=== PATIENT | female | born 1975 | race Two or more races ===

== ENCOUNTER 2022-07-03 10:51 | Emergency (ER) | payer OTHER ==
[~2022-07-03] VITALS: Ht 165.1 cm; Wt 100.0 kg
[2022-07-03 11:20] VITALS: BP 136/91
[2022-07-03] MEDS ORDERED: ACETAMINOPHEN 500 MG TAB PO ONE (11:30)
== END 2022-07-03 15:19 | disposition left against medical advice (07) ==
LOC: ER 10:51
DX: S16.1XXA Strain of muscle, fascia and tendon at neck level, initial encounter (principal); S00.83XA Contusion of other part of head, initial encounter; G91.9 Hydrocephalus, unspecified; G93.0 Cerebral cysts; Z20.822 Contact with and (suspected) exposure to COVID-19; W01.198A Fall on same level from slipping, tripping and stumbling with subsequent striking against other object, initial encounter; Y93.89 Activity, other specified; Y92.89 Other specified places as the place of occurrence of the external cause; Y99.8 Other external cause status
CPT/HCPCS: 36415; 70450; 72040; 87426

== ENCOUNTER → 2024-09-14 | Day surgery (SDC) | payer OTHER ==
[2024-09-13 10:32] LABS: Basophils # (auto) 0.1 10 ^3/uL (0-0.2); Eosinophils # (auto) 0.3 10 ^3/uL (0-0.8); Hemoglobin 13.5 g/dL (12.2-16.2); Lymphocytes # (auto) 2.3 10 ^3/uL (0.4-5.4); Neutrophils # (auto) 3.4 10 ^3/uL (1.6-8.6); Red Cell Distribution Width 14.3 % (11.8-14.3)
[2024-09-13 10:34] LABS: Basophils % (auto) 0.8 % (0.0-2.0); Eosinophils % (auto) 4.6 % (0.0-7.0); Hematocrit 42.2 % (36.0-46.0); Lymphocytes % (auto) 35.5 % (10.0-50.0); Mean Corpuscular Hemoglobin 26.8 pg (28.0-32.0); Mean Corpuscular Volume 83.7 fL (80.0-100.0); Monocytes # (auto) 0.5 10 ^3/uL (0-1.3); Neutrophils % (auto) 52.1 % (37.0-80.0); Platelet Count (auto) 396 10^3/uL (140-450); Red Blood Cells 5.04 10^6/uL (4.0-5.20); White Blood Cell 6.6 10^3/uL (4.4-10.8)
[2024-09-13 10:44] LABS: INR 0.98 (0.9-1.15); Partial Thromboplastin Time 28.3 SEC (24.5-34.5); Prothrombin Time 10.4 sec (9.3-11.8)
[2024-09-13 10:45] LABS: Urine Bacteria FEW /hpf (None Seen); Urine Blood Negative /uL (Negative); Urine Clarity Clear (Clear); Urine Color Colorless (Yellow); Urine Protein, UAD Negative (Negative); Urine Specific Gravity 1.004 (1.001-1.035); Urine Squamous Epithelial Cell FEW /hpf (<5); Urine Urobilinogen Normal (Negative); Urine WBC 4 /HPF (0-5)
[2024-09-13 12:01] LABS: Alkaline Phosphatase 84 U/L (46-116); Anion Gap 9 (5-15); Aspartate Aminotransferase 34 U/L (13-40); Calcium 10.3 mg/dL (8.7-10.4); Carbon Dioxide 27 mmol/L (20-31); Chloride 106 mmol/L (98-107); Potassium 4.3 mmol/L (3.5-5.1); Sodium 142 mmol/L (136-145); Total Protein 7.4 g/dL (5.7-8.2)
[2024-09-13 12:10] LABS: Alanine Aminotransferase 61 U/L (7-40); Bilirubin, Total 0.3 mg/dL (0.2-1.0); Blood Urea Nitrogen 8 mg/dL (9-23); Glucose 111 mg/dL (74-106)
[~2024-09-14] VITALS: Ht 165.1 cm; Wt 108.9 kg
[~2024-09-14] MED LIST: DexAMETHasone SOD PHOS 10MG/1ML VIAL INJ ONE; GLYCOPYRROLATE 0.2 MG/ML 1ML VIAL ONE; HYDROmorphone HCL 2 MG/ML VL/or syr ONE; KETOROLAC TROMETH 30 MG/ML 1ML VIAL ONE; LIDOCAINE 2% (LOCAL ANESTH.) PF 5ml SDV ONE; MIDAZOLAM HCL 2MG/2ML 2ml VIAL (1mg/ml) ONE; ONDANSETRON HCL 4 MG/2 ML VIAL ONE; PROPOFOL 10 MG/ML 20 ML IV ONE; VENL-194 PO; fentaNYL CITRATE 100 MCG/2 ML VL ONE
== END | disposition home or self-care (01) ==
LOC: SUR 09:18
PROVIDERS: ATTEND Urology
DX: N39.3 Stress incontinence (female) (male) (principal); Z53.8 Procedure and treatment not carried out for other reasons
CPT/HCPCS: 36415; 80053; 81001; 84702; 85025; 85610; 85730; 87086; J1100; J1171; J1885; J2003; J2250; J2405; J2704; J3010

== ENCOUNTER 2024-11-14 13:04 | Inpatient (IN) | payer OTHER ==
[~2024-11-14] VITALS: Ht 165.1 cm; Wt 111.7 kg
[~2024-11-14 13:04] MED LIST changes: -ACETAMINOPHEN IV 1000 MG/100ML (10MG/ML) IV ONE; -BACITRACIN TOP OINT 1 UD PKG TOP ONE; -CELECOXIB 100 MG CAP PO ONE; -CONJ ESTROGENS 0.625MG/GM VAG CRM 30GM PV ONE; -DOCU-94 PO; -DexAMETHasone SOD PHOS 10MG/1ML VIAL INJ ONE; -FLUMAZENIL 0.1 MG/ML INJ 10ML MDV IV PRN; -GABAPENTIN 300 MG CAP PO ONE; -GLYCOPYRROLATE 0.2 MG/ML 1ML VIAL ONE; -HYDROmorphone HCL 2 MG/ML VL/or syr IV PRN; -KETAMINE 50mg/ML 10ml Vial 10 ML ONE; -KETAMINE 50mg/ML 1ml syringe ONE; -KETOROLAC TROMETH 30 MG/ML 1ML VIAL ONE; -LIDOCAINE 1% INJ PF 5ML AMP ONE; -LIDOCAINE 2% (LOCAL ANESTH.) PF 5ml SDV ONE; -LIDOCAINE HCL 2% TOP JELLY 5ML TOP ONE; -LIDOCAINE W/ EPINEPHRINE 1% 20ML VIAL ONE; -Lidocaine/Epinephrine 1%-1:100,000 30ML VL ONE; -MIDAZOLAM HCL 2MG/2ML 2ml VIAL (1mg/ml) ONE; -NALOXONE HCL 0.4 MG/ML VIAL IV PRN; -ONDANSETRON HCL 4 MG/2 ML VIAL IV PRN; -ONDANSETRON HCL 4 MG/2 ML VIAL ONE; -PROPOFOL 10 MG/ML 20 ML IV ONE; -ROCURONIUM 10MG/ML 10ML VIAL IV ONE; -SODIUM CHLORIDE LOCK 10 ML ONE; -ceFAZolin 1GM VL ONE; -ceFAZolin 1GM/50ML 50 ML IV ONE; -ePHEDrine SULFATE 50 MG/ML AMP IV PRN; -fentaNYL CITRATE 100 MCG/2 ML VL IV PRN; -fentaNYL CITRATE 100 MCG/2 ML VL ONE; -fentaNYL CITRATE 5 ML ONE; -hydrALAZINE HCL 20 MG/ML VL IV PRN; -oxyCODONE HCL 5MG TAB PO PRN
--- NOTE | 2024-11-14 13:20 | ED.PDOC ---
General HPI Comments 49-year-old female with a history of anxiety brought in by family for evaluation of post surgical bleeding. Patient states she underwent bladder lift by Dr. Hernandez this morning and was discharged this afternoon. Patient states that after returning home she felt the urge to urinate, checked the collection bag for her Guzman catheter and noted that it was full. As she attempted to empty it, she felt a gush of fluid and noted a large amount of bright red blood on her pad. She states that she has soaked another pad in the past 12 minutes. She denies any worsening pain, just discomfort at the perineal area. He denies fever, abdominal pain, shortness of breath or other symptoms. Time Seen by MD: 13:10 Reviewed notes: Nurses Notes, Medications, Allergies Allergies: Coded Allergies: NO KNOWN ALLERGIES (Unverified , 09/13/24) Home Meds Reported Medications Terbinafine Hcl (Terbinafine Hcl) 250 Mg Tab, 250 MG PO DAILY, TAB 11/10/24 Arnica [place] (Arnica Lg) 1 Liq Liq, 1 LIQ XX DAILY, LIQ 11/10/24 Venlafaxine HCl (Venlafaxine Hydrochloride) 37.5 Mg Tab, 37.5 MG PO BID, TAB 09/13/24 Information Source: Patient Mode of Arrival: Wheelchair Severity: Moderate Timing: Hours Duration: Since onset Prehospital treatment: None Onset: Spontaneous Symptoms: None History of: None Location: None Modifying factors: None associated signs and symptoms: None Past Medical History PAST MEDICAL HISTORY: Anxiety Surgical History: Cholecystectomy Surgical History (Other): COLPOSUSPENSION, RIGHT BREAST TUMOR REMOVAL ADAPTED PHYSICAL EDUCATION SPECIALIST History: No Pertinent ADAPTED PHYSICAL EDUCATION SPECIALIST History Family History Family History: Reviewed,noncontributory to illness Social History Smoker: Non-Smoker Alcohol: Denies ETOH Use Drugs: Denies Drug Use Lives In: Home Constitutional: denies: chills, diaphoresis, fatigue, fever, malaise, sweats, weakness, others EENTM: denies: blurred vision, double vision, ear bleeding, ear discharge, ear drainage, ear pain, ear ringing, eye pain, eye redness, hearing loss, mouth pain, mouth swelling, nasal discharge, nose bleeding, nose congestion, nose pain, photophobia, tearing, throat pain, throat swelling, voice changes, others Respiratory: denies: cough, hemoptysis, orthopnea, SOB at rest, shortness of breath, SOB with excertion, stridor, wheezing, others Cardiovascular: denies: chest pain, dizzy spells, diaphoresis, Dyspnea on exertion, edema, irregular heart beat, left arm pain, lightheadedness, palpitations, PND, syncope, others Gastrointestinal: denies: abdomen distended, abdominal pain, blood streaked bowels, constipated, diarrhea, dysphagia, difficulty swallowing, hematemesis, melena, nausea, poor appetite, poor fluid intake, rectal bleeding, rectal pain, vomiting, others Genitourinary: reports: abnormal vagina bleeding; denies: burning, dyspareunia, dysuria, flank pain, frequency, hematuria, incontinence, pain, , vagina discharge, urgency, others Neurological: denies: dizziness, fainting, headache, left sided numbness, left sided weakness, numbness, paresthesia, pre-existing deficit, right sided numbness, right sided weakness, seizure, speech problems, tingling, tremors, weakness, others Musculoskeletal: denies: back pain, gout, joint pain, joint swelling, muscle pain, muscle stiffness, neck pain, others Integumetry: denies: bruises, change in color, change in hair/nails, dryness, laceration, lesions, lumps, rash, wounds, others Allergic/Immunocompromised: denies: Difficulty Healing, Frequent Infections, Hives, Itching, others Hematologic/Lymphatic: denies: anemia, blood clots, easy bleeding, easy b ruising, swollen glands, others Endocrine: denies: excessive hunger, excessive sweating, excessive thirst, excessive urination, flushing, intolerance to cold, intolerance to heat, unexplained weight gain, unexplained weight loss, others Psychiatric: denies: anxiety, bipolar disorder, depression, hopeless, panic disorder, schizophrenia, sleepless, suicidal, others All Other Systems: Reviewed and Negative Physical Exam General Appearance: Mild Distress, Obese HEENT: Other (Pupils and face symmetric. Moist mucous membranes.) Neck: Full Range of Motion, Normal Inspection Respiratory: Lungs Clear, No Accessory Muscle Use, No Respiratory Distress, Normal Breath Sounds Cardiovascular: No Edema, No JVD, Regular Rate/Rhythm Breast Exam: Deferred Gastrointestinal: Non Tender, Soft Genitalia: Other (Guzman catheter in place with nonbloody urine in the catheter and collection bag. Intravaginal blood soaked packing in place with moderate bright red blood on pad. Minimal bright red bleeding around packing.) Pelvic: Deferred Rectal: Deferred Extremities: Normal inspection, Normal range of motion, Non-tender, No pedal edema Neurologic: Alert (Oriented x4), Normal Affect, Normal Mood, Other (Ambulatory with assistance. Mildly tremulous.) Cerebellar Function: NOT DONE Reflexes: NOT DONE Skin: Dry, Pallor, Warm Lymphatic: NOT DONE Was a procedure done? Was a procedure done?: No Differential Diagnosis Kidney stone (Female): N/A Kidney stone (Male): N/A Penile/Scrotal: N/A Urinary Problem (Male): N/A Urinary Problem (Female): Post-op complication, UTI, Other (Anemia, coagulopathy, infection, among others) X-Ray, Labs, Meds, VS Vital Signs Date Time Temp Pulse Resp B/P (MAP) Pulse Ox O2 Delivery O2 Flow Rate FiO2 11/14/24 13:10 97.4 107 19 143/75 (97) 98 97.4 Lab Test 11/14/24 13:44 11/14/24 13:34 Range/Units Urine Color Light-yellow Yellow Urine Clarity Clear Clear Urine pH 7.0 5.0-9.0 Urine Specific [place] 1.013 1.001-1.035 Urine Protein Negative Negative Urine Ketones Negative Negative Urine Blood Trace H Negative /uL Urine Nitrite Negative Negative Urine Bilirubin Negative Negative Urine Urobilinogen Normal Negative mg/dL Urine Leukocyte Esterase Negative Negative /uL Urine RBC 11 0 - 4 /hpf Urine Microscopic WBC < 1 0-5 /HPF Urine Squamous Epithelial Cells None seen <5 /hpf Urine Bacteria None seen None Seen /hpf Urine Hyaline Casts Few 0 - 2 /lpf Urine Mucus Few None Seen Urine Glucose Normal Normal mg/dL White Blood Count 6.6 4.4-10.8 10^3/uL Red Blood Count 5.18 4.0-5.20 10^6/uL Hemoglobin 14.4 12.2-16.2 g/dL Hematocrit 43.3 36.0-46.0 % Mean Corpuscular Volume 83.5 80.0-100.0 fL Mean Corpuscular Hemoglobin 27.7 L 28.0-32.0 pg Mean Corpuscular Hemoglobin Concent 33.2 32.0-36.0 g/dL Red Cell Distribution Width 16.5 H 11.8-14.3 % Platelet Count 353 140-450 10^3/uL Mean Platelet Volume 7.6 6.9-10.8 fL Neutrophils (%) (Auto) 84.2 H 37.0-80.0 % Lymphocytes (%) (Auto) 14.4 10.0-50.0 % Monocytes (%) (Auto) 1.2 0.0-12.0 % Eosinophils (%) (Auto) 0.0 0.0-7.0 % Basophils (%) (Auto) 0.2 0.0-2.0 % Neutrophils # (Auto) 5.6 1.6-8.6 10 ^3/uL Lymphocytes # (Auto) 1.0 0.4-5.4 10 ^3/uL Monocytes # (Auto) 0.1 0-1.3 10 ^3/uL Eosinophils # (Auto) 0 0-0.8 10 ^3/uL Basophils # (Auto) 0 0-0.2 10 ^3/uL Nucleated Red Blood Cells 0.0 % Prothrombin Time 11.1 9.3-11.8 sec Prothrombin Time INR 1.05 0.9-1.15 Activated Partial Thromboplast Time 27.9 24.5-34.5 SEC Sodium Level 141 136-145 mmol/L Potassium Level 4.1 3.5-5.1 mmol/L Chloride Level 105 98-107 mmol/L Carbon Dioxide Level 26 20-31 mmol/L Anion Gap 10 5-15 Blood Urea Nitrogen 11 9-23 mg/dL Creatinine 0.83 0.550-1.02 mg/dL Glomerular Filtration Rate Calc 87 >90 mL/min BUN/Creatinine Ratio 13.3 10.0-20.0 Serum Glucose 170 H 74-106 mg/dL Calcium Level 9.9 8.7-10.4 mg/dL X-Ray, Labs, Meds, VS Comment 49-year-old female with a history of anxiety and recent bladder lift presenting with postoperative bleeding Vitals remarkable for Exam remarkable for [id number] bright red bleeding from around intravagina l packing Rhythm strip independently interpreted by me: CBC, basic metabolic panel and coag panel unremarkable Dr. Hernandez was paged for consultation however was currently in the OR on case. Case discussed with Mary urology MARKETING SUPPORT MANAGER who advised reinforcing the surgical site with pads and admitting to hospitalist for observation. Time of 1ST Reevaluation: 13:40 Reevaluation 1ST: Unchanged Patient Education/Counseling: Diagnosis, Treatment Family Education/Counseling: No Family Present Departure 1 Departure Time of Disposition: 14:12 Impression: Primary Impression: Postoperative vaginal bleeding Disposition: 09 ADMITTED INPATIENT Admit to: Med Surg Condition: Fair Critical Care Note Critical Care Time?: No Stability Stability form required: No Heart Score Heart Score: Heart Score Response (Comments) Value History N/A 0 EKG N/A 0 Age N/A 0 Risk Factors N/A 0 Troponin N/A 0 Total 0 I personally scribed for MAGDA LEBLANC MD ([email or web address]) on 11/14/24 at 13:20. Electronically submitted by Juliet Sellers ([email or web address]). I personally scribed for MAGDA LEBLANC MD ([email or web address]) on 11/14/24 at 13:24. Electronically submitted by Juliet Sellers ([email or web address]). MAGDA LEBLANC MD Nov 14, 2024 13:20
[2024-11-14 13:46] LABS: Basophils # (auto) 0 10 ^3/uL (0-0.2); Basophils % (auto) 0.2 % (0.0-2.0); Eosinophils # (auto) 0 10 ^3/uL (0-0.8); Hematocrit 43.3 % (36.0-46.0); Hemoglobin 14.4 g/dL (12.2-16.2); Lymphocytes % (auto) 14.4 % (10.0-50.0); Mean Corpuscular Hemoglobin 27.7 pg (28.0-32.0); Mean Corpuscular Hgb Conc. 33.2 g/dL (32.0-36.0); Mean Corpuscular Volume 83.5 fL (80.0-100.0); Monocytes # (auto) 0.1 10 ^3/uL (0-1.3); Monocytes % (auto) 1.2 % (0.0-12.0); Neutrophils # (auto) 5.6 10 ^3/uL (1.6-8.6); Neutrophils % (auto) 84.2 % (37.0-80.0); Platelet Count (auto) 353 10^3/uL (140-450); Red Blood Cells 5.18 10^6/uL (4.0-5.20); Red Cell Distribution Width 16.5 % (11.8-14.3); White Blood Cell 6.6 10^3/uL (4.4-10.8)
[2024-11-14 13:59] LABS: Chloride 105 mmol/L (98-107); Potassium 4.1 mmol/L (3.5-5.1); Sodium 141 mmol/L (136-145)
[2024-11-14 14:00] LABS: Anion Gap 10 (5-15); Calcium 9.9 mg/dL (8.7-10.4); Carbon Dioxide 26 mmol/L (20-31)
[2024-11-14 14:01] LABS: INR 1.05 (0.9-1.15); Partial Thromboplastin Time 27.9 SEC (24.5-34.5); Prothrombin Time 11.1 sec (9.3-11.8)
[2024-11-14 14:05] LABS: BUN/Creatinine Ratio 13.3 (10.0-20.0); Blood Urea Nitrogen 11 mg/dL (9-23); Glucose 170 mg/dL (74-106)
[2024-11-14 14:17] LABS: Urine Bacteria None Seen /hpf (None Seen)
[2024-11-14 14:32] LABS: Urine Blood TRACE /uL (Negative); Urine Clarity Clear (Clear); Urine Color Light-Yellow (Yellow); Urine Hyaline Cast FEW /lpf (0 - 2); Urine Mucus FEW (None Seen); Urine Protein, UAD Negative (Negative); Urine Specific Gravity 1.013 (1.001-1.035); Urine Squamous Epithelial Cell None Seen /hpf (<5); Urine Urobilinogen Normal (Negative); Urine WBC < 1 /HPF (0-5)
--- NOTE | 2024-11-14 15:46 | DVHINCON2 ---
Date of service: Nov 14, 2024 Referring Physician ER Reason for Consultation Vaginal bleeding postop History of Present Illness Patient underwent transvaginal sling operation earlier today returns to hospital with severe vaginal bleeding. Past Medical History ISIS Past Surgical History Sling operation Allergies: Coded Allergies: NO KNOWN ALLERGIES (Unverified , 09/13/24) Home Meds Reported Medications Terbinafine Hcl (Terbinafine Hcl) 250 Mg Tab, 250 MG PO DAILY, TAB 11/10/24 Arnica [place] (Arnica Lg) 1 Liq Liq, 1 LIQ XX DAILY, LIQ 11/10/24 Venlafaxine HCl (Venlafaxine Hydrochloride) 37.5 Mg Tab, 37.5 MG PO BID, TAB 09/13/24 Review of Systems vaginal bleeding Vital Signs Vital Signs Date Time Temp Pulse Resp B/P (MAP) Pulse Ox O2 Delivery O2 Flow Rate FiO2 11/14/24 13:10 97.4 107 19 143/75 (97) 98 97.4 Physical Exam Pelvic exam: perfuse bleeding noted. Vaginal packing repeated. Labs/Diagnostic Data Labs Test 11/14/24 13:44 11/14/24 13:34 Range/Units Urine Color Light-yellow Yellow Urine Clarity Clear Clear Urine pH 7.0 5.0-9.0 Urine Specific [place] 1.013 1.001-1.035 Urine Protein Negative Negative Urine Ketones Negative Negative Urine Blood Trace H Negative /uL Urine Nitrite Negative Negative Urine Bilirubin Negative Negative Urine Urobilinogen Normal Negative mg/dL Urine Leukocyte Esterase Negative Negative /uL Urine RBC 11 0 - 4 /hpf Urine Microscopic WBC < 1 0-5 /HPF Urine Squamous Epithelial Cells None seen <5 /hpf Urine Bacteria None seen None Seen /hpf Urine Hyaline Casts Few 0 - 2 /lpf Urine Mucus Few None Seen Urine Glucose Normal Normal mg/dL White Blood Count 6.6 4.4-10.8 10^3/uL Red Blood Count 5.18 4.0-5.20 10^6/uL Hemoglobin 14.4 12.2-16.2 g/dL Hematocrit 43.3 36.0-46.0 % Mean Corpuscular Volume 83.5 80.0-100.0 fL Mean Corpuscular Hemoglobin 27.7 L 28.0-32.0 pg Mean Corpuscular Hemoglobin Concent 33.2 32.0-36.0 g/dL Red Cell Distribution Width 16.5 H 11.8-14.3 % Platelet Count 353 140-450 10^3/uL Mean Platelet Volume 7.6 6.9-10.8 fL Neutrophils (%) (Auto) 84.2 H 37.0-80.0 % Lymphocytes (%) (Auto) 14.4 10.0-50.0 % Monocytes (%) (Auto) 1.2 0.0-12.0 % Eosinophils (%) (Auto) 0.0 0.0-7.0 % Basophils (%) (Auto) 0.2 0.0-2.0 % Neutrophils # (Auto) 5.6 1.6-8.6 10 ^3/uL Lymphocytes # (Auto) 1.0 0.4-5.4 10 ^3/uL Monocytes # (Auto) 0.1 0-1.3 10 ^3/uL Eosinophils # (Auto) 0 0-0.8 10 ^3/uL Basophils # (Auto) 0 0-0.2 10 ^3/uL Nucleated Red Blood Cells 0.0 % Prothrombin Time 11.1 9.3-11.8 sec Prothrombin Time INR 1.05 0.9-1.15 Activated Partial Thromboplast Time 27.9 24.5-34.5 SEC Sodium Level 141 136-145 mmol/L Potassium Level 4.1 3.5-5.1 mmol/L Chloride Level 105 98-107 mmol/L Carbon Dioxide Level 26 20-31 mmol/L Anion Gap 10 5-15 Blood Urea Nitrogen 11 9-23 mg/dL Creatinine 0.83 0.550-1.02 mg/dL Glomerular Filtration Rate Calc 87 >90 mL/min BUN/Creatinine Ratio 13.3 10.0-20.0 Serum Glucose 170 H 74-106 mg/dL Calcium Level 9.9 8.7-10.4 mg/dL Assessment Vaginal bleeding from surgical site Plan/Recommendation Urgent return to OR for transvaginal ligation of bleeding tissue Plan discussed with: Patient, Other DEE BECK MD Nov 14, 2024 15:46
[2024-11-14] MEDS ORDERED: MORPHINE SULFATE 4 MG/ML SYR/VIAL IV PRN (16:30)
[2024-11-14] MEDS: METOCLOPRAMIDE HCL 5MG/ml INJ 2ml VIAL IV ONE (16:30)
[2024-11-14] MEDS ORDERED: HYDROmorphone HCL 2 MG/ML VL/or syr IV PRN ×2 (16:30)
[2024-11-14] MEDS ORDERED: MORPHINE SULFATE INJ 2 MG/ml SYRG IV PRN (17:11)
[2024-11-14 17:25] VITALS: PULSE 90; RESP 16; O2SAT 97
--- NOTE | 2024-11-14 17:29 | DVHNC2 ---
Procedure - OPERATIVE REPORT Pre-op. Diagnosis: Post Sling Operation Vaginal Bleeding Post-op. Diagnosis: Right anterior vaginal wall tear, 4 cm Operation: Transvaginal repair of anterior vaginal wall tear Anesthesia: general Dr. Tolbert Indications: The patient underwent vaginal sling operation earlier this morning and was discharged to home through outpatient surgery. She returns it hours later to emergency room with vaginal bleeding that is significantly excessive. Vaginal examination in the ER noted significant hemorrhage distal to the vaginal packing. I elected to take patient back to the operating room for transvaginal examination and ligation of bleeding. The consent was obtained with patient and family. Details of Procedure: Patient was taken to the operating room and underwent general anesthesia. She was placed in dorsal lithotomy position with the area of the genitalia prepped and draped in usual sterile manner. The Lone star system was used for retraction. Guzman catheter was inserted into the bladder and vaginal evaluation was performed. The midline vaginal sutures are intact. On the right lateral aspect of the anterior wall, there was a 4 cm vaginal tear. The edges were identified, bleeders were cauterized with the Bugbee and wound was closed with 2-0 Vicryl UR6 needles in interrupted manner. Hemostasis is verified and a new vaginal packing was applied. Quick cystoscopy with a 70 degree angle lens was performed and there were no evidence of lateral wall injury. Guzman catheter was inserted after removal of the cystoscope. Patient was taken to recovery room in stable condition Specimens: none Complications: none Findings: a 4 cm lateral right anterior vaginal wall tear was noted. This was fully identified, cleaned and closed with 2-0 Vicryl sutures in interrupted manner. Notes: patient will be admitted for observation. The Guzman catheter and vaginal packing will be removed on postop day 1. DEE BECK MD Nov 14, 2024 17:29
[2024-11-14 18:05] VITALS: PULSE 85; RESP 12; O2SAT 92
[2024-11-14] MEDS: KETOROLAC TROMETH 30 MG/ML 1ML VIAL IV ONE (19:44)
[2024-11-14] MEDS ORDERED: ONDANSETRON HCL 4 MG/2 ML VIAL IV PRN (19:45)
[2024-11-14 20:40] VITALS: BP 123/66; PULSE 97; RESP 16; TEMP 97.7; O2SAT 91
[2024-11-14] MEDS: HYDROcodone-ACET 5/325MG TAB PO PRN (21:27)
[2024-11-14 22:17] VITALS: BP 110/59; PULSE 97; RESP 16; TEMP 97.7; O2SAT 95
--- NOTE | 2024-11-14 22:45 | DVHHP2 ---
History of Present Illness Reason for Visit: Vaginal bleed postop History of Present Illness 49-year-old female presents for evaluation of vaginal bleed postoperatively. Patient underwent a transvaginal sling operation this morning. Patient was sent home in stable condition. Patient developed vaginal bleed while at home and returned to be evaluated. Patient was taken to the operating room and found to have a vaginal wall tear which was repaired. Patient is currently alert oriented in no apparent distress. Past Medical History Anxiety Past Surgical History Right breast tumor removal, transvaginal sling procedure Family History Noncontributory Smoke: No ALCOHOL: none Drugs: None Lives: with Family Review of Systems Review of Systems Review of systems are currently negative otherwise addressed in HPI. Allergies: Coded Allergies: NO KNOWN ALLERGIES (Unverified , 09/13/24) Medications Current Medications Medications Dose Ordered Sig/Hola Route Start Time Stop Time Status Last Admin Dose Admin Acetaminophen/ Hydrocodone Bitart 1 tab Q4HP PRN PO 11/14/24 19:45 11/14/24 21:27 1 TAB Ondansetron HCl 4 mg Q4HP PRN IV 11/14/24 19:45 Acetaminophen 650 mg Q6HP PRN PO 11/14/24 19:45 Exam Vital Signs Vital Signs Date Time Temp Pulse Resp B/P (MAP) Pulse Ox O2 Delivery O2 Flow Rate FiO2 11/14/24 20:15 93 19 119/72 (88) 93 11/14/24 18:05 Mask 11/14/24 17:25 98.3 98.3 11/14/24 17:25 9.0 100 Exam Gen: 49-year-old female in no apparent distress. Skin: Warm, dry, normal color and texture, no rash. HEENT: Normocephalic atraumatic, mucous membranes moist and pink. Neck: Cervical and supraclavicular nodes normal without enlargement, trachea is midline, thyroid gland is normal without masses. Pulmonary: Clear to auscultation and percussion bilaterally. Cardiac: Regular rate and rhythm. No murmur Abdomen: Soft, nontender, nondistended, bowel sounds present all 4 quadrants, no guarding, no rigidity, no organomegaly. Extremities: No cyanosis, clubbing, no edema Neuro: Cranial nerves II through XII grossly intact, normal affect and speech, no focal motor deficits. Labs/Xrays Labs Test 11/14/24 13:44 4/29/25 13:34 Range/Units Urine Color Light-yellow Yellow Urine Clarity Clear Clear Urine pH 7.0 5.0-9.0 Urine Specific [place] 1.013 1.001-1.035 Urine Protein Negative Negative Urine Ketones Negative Negative Urine Blood Trace H Negative /uL Urine Nitrite Negative Negative Urine Bilirubin Negative Negative Urine Urobilinogen Normal Negative mg/dL Urine Leukocyte Esterase Negative Negative /uL Urine RBC 11 0 - 4 /hpf Urine Microscopic WBC < 1 0-5 /HPF Urine Squamous Epithelial Cells None seen <5 /hpf Urine Bacteria None seen None Seen /hpf Urine Hyaline Casts Few 0 - 2 /lpf Urine Mucus Few None Seen Urine Glucose Normal Normal mg/dL White Blood Count 6.6 4.4-10.8 10^3/uL Red Blood Count 5.18 4.0-5.20 10^6/uL Hemoglobin 14.4 12.2-16.2 g/dL Hematocrit 43.3 36.0-46.0 % Mean Corpuscular Volume 83.5 80.0-100.0 fL Mean Corpuscular Hemoglobin 27.7 L 28.0-32.0 pg Mean Corpuscular Hemoglobin Concent 33.2 32.0-36.0 g/dL Red Cell Distribution Width 16.5 H 11.8-14.3 % Platelet Count 353 140-450 10^3/uL Mean Platelet Volume 7.6 6.9-10.8 fL Neutrophils (%) (Auto) 84.2 H 37.0-80.0 % Lymphocytes (%) (Auto) 14.4 10.0-50.0 % Monocytes (%) (Auto) 1.2 0.0-12.0 % Eosinophils (%) (Auto) 0.0 0.0-7.0 % Basophils (%) (Auto) 0.2 0.0-2.0 % Neutrophils # (Auto) 5.6 1.6-8.6 10 ^3/uL Lymphocytes # (Auto) 1.0 0.4-5.4 10 ^3/uL Monocytes # (Auto) 0.1 0-1.3 10 ^3/uL Eosinophils # (Auto) 0 0-0.8 10 ^3/uL Basophils # (Auto) 0 0-0.2 10 ^3/uL Nucleated Red Blood Cells 0.0 % Prothrombin Time 11.1 9.3-11.8 sec Prothrombin Time INR 1.05 0.9-1.15 Activated Partial Thromboplast Time 27.9 24.5-34.5 SEC Sodium Level 141 136-145 mmol/L Potassium Level 4.1 3.5-5.1 mmol/L Chloride Level 105 98-107 mmol/L Carbon Dioxide Level 26 20-31 mmol/L Anion Gap 10 5-15 Blood Urea Nitrogen 11 9-23 mg/dL Creatinine 0.83 0.550-1.02 mg/dL Glomerular Filtration Rate Calc 87 >90 mL/min BUN/Creatinine Ratio 13.3 10.0-20.0 Serum Glucose 170 H 74-106 mg/dL Calcium Level 9.9 8.7-10.4 mg/dL Assessment/Plan Assessment/Plan Assessment Postop vaginal bleed Status post transvaginal sling procedure Plan Admit the patient to [facility] to the hospitalist Resume home medications Monitor H&H Continue treatment per orders. Plan discussed with: Patient My Orders Orders - ASAD TRIMBLE Procedure Category Date Status Time Regular Diet DIET 11/15/24 Transmitted Breakfast Basic Metabolic Panel LAB 11/15/24 Verified 04:00 Admit ADMIT 11/14/24 Transmitted 19:41 Hydrocodone-Acet PHA 11/14/24 In Process 5/325mg Tab ([place] 19:45 Ondansetron Hcl PHA 11/14/24 In Process (Zofran) 19:45 Complete Blood Count LAB 11/15/24 Verified 04:00 Condition: Stable MARI 11/14/24 In Process 19:41 Acetaminophen Tablet PHA 11/14/24 In Process (Tylenol Tablet) 19:45 Bedrest With Bathroom MARI 11/14/24 In Process Privileg 19:41 Date of Service: Nov 14, 2024 Billing Provider: ASAD TRIMBLE Common Visit Codes: 80378-SZHETCL INP/OBS CARE (MOD) ASAD TRIMBLE Nov 14, 2024 22:44
[2024-11-14 23:04] LABS: Sodium 140 mmol/L (136-145)
[2024-11-14 23:05] LABS: Anion Gap 9 (5-15); Basophils # (auto) 0 10 ^3/uL (0-0.2); Basophils % (auto) 0.3 % (0.0-2.0); Calcium 9.2 mg/dL (8.7-10.4); Carbon Dioxide 22 mmol/L (20-31); Eosinophils # (auto) 0 10 ^3/uL (0-0.8); Eosinophils % (auto) 0.1 % (0.0-7.0); Hematocrit 38.6 % (36.0-46.0); Hemoglobin 12.6 g/dL (12.2-16.2); Lymphocytes % (auto) 9.3 % (10.0-50.0); Mean Corpuscular Hemoglobin 27.5 pg (28.0-32.0); Mean Corpuscular Hgb Conc. 32.6 g/dL (32.0-36.0); Mean Corpuscular Volume 84.6 fL (80.0-100.0); Monocytes # (auto) 0.1 10 ^3/uL (0-1.3); Monocytes % (auto) 1.1 % (0.0-12.0); Neutrophils # (auto) 9.7 10 ^3/uL (1.6-8.6); Neutrophils % (auto) 89.2 % (37.0-80.0); Platelet Count (auto) 300 10^3/uL (140-450); Red Blood Cells 4.56 10^6/uL (4.0-5.20); White Blood Cell 10.8 10^3/uL (4.4-10.8)
[2024-11-14 23:10] LABS: BUN/Creatinine Ratio 11.9 (10.0-20.0)
[2024-11-14 23:16] LABS: Blood Urea Nitrogen 8 mg/dL (9-23); Chloride 109 mmol/L (98-107); Glucose 159 mg/dL (74-106)
[2024-11-15] VITALS (7 sets, daily range): BP systolic 104–147; BP diastolic 59–79; PULSE 85–102; RESP 16–20; TEMP 97.9–98.7; O2SAT 91–96
[2024-11-15] MEDS: ACETAMINOPHEN 325 MG TAB PO PRN (00:19)
--- NOTE | 2024-11-15 01:21 | DVH ---
RENAL ULTRASOUND CLINICAL HISTORY: hydronephrosis TECHNIQUE: Multiple grayscale ultrasound images were obtained through the kidneys and urinary bladder . COMPARISON: None FINDINGS: Right kidney: Measures 12.4 cm. No hydronephrosis. Left kidney: 12.4 cm. No hydronephrosis. Urinary bladder: Decompressed about a Guzman catheter Incidental increased echogenicity of the liver. IMPRESSION: 1. Normal size kidneys without evidence of hydronephrosis. 2. Urinary bladder is decompressed about a Guzman catheter. 3. Hepatic steatosis.
[2024-11-15 06:24] LABS: Basophils # (auto) 0 10 ^3/uL (0-0.2); Eosinophils # (auto) 0 10 ^3/uL (0-0.8); Hematocrit 36.5 % (36.0-46.0); Hemoglobin 11.9 g/dL (12.2-16.2); Lymphocytes # (auto) 1.2 10 ^3/uL (0.4-5.4); Lymphocytes % (auto) 10.1 % (10.0-50.0); Mean Corpuscular Hemoglobin 27.4 pg (28.0-32.0); Mean Corpuscular Hgb Conc. 32.5 g/dL (32.0-36.0); Mean Corpuscular Volume 84.3 fL (80.0-100.0); Monocytes # (auto) 0.5 10 ^3/uL (0-1.3); Monocytes % (auto) 3.9 % (0.0-12.0); Neutrophils # (auto) 10.4 10 ^3/uL (1.6-8.6); Nucleated Red Blood Cells % 0.1 %; Platelet Count (auto) 330 10^3/uL (140-450); Red Blood Cells 4.33 10^6/uL (4.0-5.20); White Blood Cell 12.1 10^3/uL (4.4-10.8)
[2024-11-15 06:27] LABS: Anion Gap 7 (5-15); Carbon Dioxide 26 mmol/L (20-31); Potassium 3.9 mmol/L (3.5-5.1); Sodium 140 mmol/L (136-145)
[2024-11-15 06:33] LABS: BUN/Creatinine Ratio 13.4 (10.0-20.0); Blood Urea Nitrogen 9 mg/dL (9-23); Chloride 107 mmol/L (98-107); Glucose 153 mg/dL (74-106)
--- NOTE | 2024-11-15 07:31 | DVHPN2 ---
Progress Note - Dictate Date Seen: Nov 15, 2024 Has the PT tested + for MRSA If YES, has PT been informed?: No Medical Necessity Reason Pt with a Central, PICC or Fol: Yes The following are medically ne: Guzman Catheter Medical Necessity Reason Patient underwent outpatient sling operation with return to OR for heavy vaginal bleeding from lateral wall vaginal tear that was repaired. Subjective Doing well. Mild pain reported. vital signs Vital Sign Date Time Temp Pulse Resp B/P (MAP) Pulse Ox O2 Delivery O2 Flow Rate FiO2 11/15/24 05:00 97.9 97 19 107/64 (78) 95 97.9 11/14/24 22:17 Nasal Cannula* 2 28 Total Intake and Output 11/14/24 11/14/24 11/15/24 15:00 23:00 07:00 Intake Total 500 ml Output Total 450 ml Balance 50 ml medications Current Medications Medications Dose Ordered Sig/Hola Route Start Time Stop Time Status Last Admin Dose Admin Acetaminophen/ Hydrocodone Bitart 1 tab Q4HP PRN PO 11/14/24 19:45 11/14/24 21:27 1 TAB Ondansetron HCl 4 mg Q4HP PRN IV 11/14/24 19:45 Acetaminophen 650 mg Q6HP PRN PO 11/14/24 19:45 11/15/24 00:[address] Urogram normal. laboratory and microbiology Laboratory Tests 11/15/24 05:30 Test 11/15/24 05:30 Range/Units Serum Glucose 153 H 74-106 mg/dL Problem List Right vaginal wall tear repaired. Assessment/Plan Vaginal bleeding from surgical site resolved. labs wnl renal US- no hydronephrosis CT Urogram normal. D/c vaginal packing and Guzman catheter May discharge home when voided. Plan discussed with: Patient, Other DEE BECK MD Nov 15, 2024 07:31
--- NOTE | 2024-11-15 10:08 | DVH ---
Procedure: CT CT AB PEL WITH IV CON ONLY 11/15/2024 08:59 AM Indication: rule out right ureteral injury Comparison Study: Ultrasound dated 11/14/2024 Technique: Axial images were obtained and reformatted in coronal and sagittal planes. A urogram corina col with noncontrast, multiphasic postcontrast protocol was utilized [facility] are performed using dose modulation techniques as appropriate to a performed exam including the following: Automated exposure control was utilized; adjustment of the MA and/or KV according to rudi ent size; and use of iterative reconstruction technique. CT Dose: CTDI volume is 26.11 mGy. Dose-amira th product is 3572.06 mGy*cm FINDINGS: Lower Chest: Unremarkable. Hepatobiliary: Hepatomegaly and hepatic steatosis. A 2.2 cm nonenhancing hypodense lesion in the le ft hepatic lobe, segment II most likely a cyst. No intrahepatic or extrahepatic ductal dilatation. G allbladder surgically absent. Spleen: Unremarkable. Pancreas: Unremarkable. Adrenal Glands: Unremarkable. tract: The kidneys are normal in size bilaterally without hydronephrosis or nephrolithiasis. The k idneys show symmetric nephrogram and excretion of contrast. No contrast leak is seen from the collect ing system. Contrast is seen in the bladder lumen. No suspicious lesion is identified. Bladder is de compressed with a Guzman catheter and cannot be adequately assessed. GI tract: The stomach is grossly normal in appearance. No evidence of small bowel obstruction. Few de scending and sigmoid colon diverticula without diverticulitis. The appendix is normal. Lymphatics: No mesenteric, retroperitoneal or periportal lymphadenopathy. Vasculature: The abdominal aorta is normal in caliber. Pelvic Organs: Anteverted uterus. Large amount of air mixed fluid/solid material noted in the vaginal cuff. No adnexal lesions identified. Bones/soft tissues: No acute abnormality. Degenerative disc disease and posterior facet arthropathy i n the lower lumbar spine. There is a small fat containing umbilical hernia. Other: None. IMPRESSION: 1. No evidence of ureteral injury. No contrast leak is seen from the collecting system. There is no ureteric obstruction or dilatation. No suspicious uterine tract lesion. The urinary bladder is decom pressed by Guzman catheter. Both kidneys show symmetric nephrogram and excretion of contrast. 2. Large amount of air mixed fluid and solid material in the vaginal cuff that may represent packing material or feces. No definite colovaginal fistula is identified in this examination. Recommend clin ical correlation. 3. Hepatomegaly and hepatic steatosis. A 2.2 cm nonenhancing hypodense lesion seen in the left hepati c lobe which is most likely a cyst. Recommend correlation with ultrasound.
--- NOTE | 2024-11-15 11:06 | DVHPN2 ---
Progress Note Date Seen: Nov 15, 2024 Has the PT tested + for MRSA If YES, has PT been informed?: No Medical Necessity Reason Pt with a Central, PICC or Fol: No Subjective Patient reports: No new complaints Review of Systems: HEENT:Normal, CVS:Normal, RESPIRATORY:Normal, GI:Normal, :Normal, MSK:Normal, NEURO:Normal Objective vital signs Vital Sign Date Time Temp Pulse Resp B/P (MAP) Pulse Ox O2 Delivery O2 Flow Rate FiO2 11/15/24 09:00 98.3 85 18 147/79 (101) 95 98.3 11/15/24 08:00 Room Air* 0 21 Total Intake and Output 11/14/24 11/14/24 11/15/24 15:00 23:00 07:00 Intake Total 500 ml Output Total 450 ml Balance 50 ml medications Current Medications Medications Dose Ordered Sig/Hola Route Start Time Stop Time Status Last Admin Dose Admin Acetaminophen/ Hydrocodone Bitart 1 tab Q4HP PRN PO 11/14/24 19:45 11/14/24 21:27 1 TAB Ondansetron HCl 4 mg Q4HP PRN IV 11/14/24 19:45 Acetaminophen 650 mg Q6HP PRN PO 11/14/24 19:45 11/15/24 00:19 650 MG Examination: GENERAL:Normal, HEENT:Normal, NECK:Normal, LUNGS:Normal, CVS:Normal, ABDOMEN:Normal, MSK:Normal, SKIN:Normal, NEURO:Normal, :Normal laboratory and microbiology Laboratory Tests 11/15/24 05:30 Test 11/15/24 05:30 Range/Units Serum Glucose 153 H 74-106 mg/dL Problem List/Assessment/Plan Problem List/Assessment/Plan #1 s/p sling surgery #2 s/p vaginal tear/bleeding: repaired #3 morbid obesity #4 hepatic steatosis Plan discussed with: Patient Date of Service: Nov 15, 2024 Billing Provider: ASAD WOODSON MD Common Visit Codes: [id number] INP/OBS CARE(HIGH) ASAD WOODSON MD Nov 15, 2024 11:06
--- NOTE | 2024-11-15 11:46 | DVH ---
Date: 11/15/2024 10:23 AM Examination: XY KUB ABDOMEN SINGLE VIEW History: delayed view of abd/pelvis after CT Urogram Comparison: None TECHNIQUE: Frontal views of the abdomen was obtained. FINDINGS: Bowel gas pattern is unremarkable. The lung bases are unremarkable. No acute osseous abnormality identified. IMPRESSION: Nonobstructive bowel gas pattern. Contrast seen in the bilateral renal collecting systems and partially visualized in the bladder.
--- NOTE | 2024-11-15 16:43 | DVHDS2 ---
Discharge Summary Date of Admission Nov 14, 2024 at 19:41 Date of Discharge: Nov 15, 2024 Labs/Diagnostic Data: Laboratory Results Test 11/15/24 05:30 11/14/24 13:44 11/14/24 13:34 White Blood Count 12.1 10^3/uL (4.4-10.8) Red Blood Count 4.33 10^6/uL (4.0-5.20) Hemoglobin 11.9 g/dL (12.2-16.2) Hematocrit 36.5 % (36.0-46.0) Mean Corpuscular Volume 84.3 fL (80.0-100.0) Mean Corpuscular Hemoglobin 27.4 pg (28.0-32.0) Mean Corpuscular Hemoglobin Concent 32.5 g/dL (32.0-36.0) Red Cell Distribution Width 16.0 % (11.8-14.3) Platelet Count 330 10^3/uL (140-450) Mean Platelet Volume 8.1 fL (6.9-10.8) Neutrophils (%) (Auto) 86.0 % (37.0-80.0) Lymphocytes (%) (Auto) 10.1 % (10.0-50.0) Monocytes (%) (Auto) 3.9 % (0.0-12.0) Eosinophils (%) (Auto) 0.0 % (0.0-7.0) Basophils (%) (Auto) 0.0 % (0.0-2.0) Neutrophils # (Auto) 10.4 10 ^3/uL (1.6-8.6) Lymphocytes # (Auto) 1.2 10 ^3/uL (0.4-5.4) Monocytes # (Auto) 0.5 10 ^3/uL (0-1.3) Eosinophils # (Auto) 0 10 ^3/uL (0-0.8) Basophils # (Auto) 0 10 ^3/uL (0-0.2) Nucleated Red Blood Cells 0.1 % Sodium Level 140 mmol/L (136-145) Potassium Level 3.9 mmol/L (3.5-5.1) Chloride Level 107 mmol/L (98-107) Carbon Dioxide Level 26 mmol/L (20-31) Anion Gap 7 (5-15) Blood Urea Nitrogen 9 mg/dL (9-23) Creatinine 0.67 mg/dL (0.550-1.02) Glomerular Filtration Rate Calc 108 mL/min (>90) BUN/Creatinine Ratio 13.4 (10.0-20.0) Serum Glucose 153 mg/dL (74-106) Hemoglobin A1c 5.5 % A1C (<5.7) Calcium Level 9.0 mg/dL (8.7-10.4) Urine Color Light-yellow (Yellow) Urine Clarity Clear (Clear) Urine pH 7.0 (5.0-9.0) Urine Specific Alfred 1.013 (1.001-1.035) Urine Protein Negative (Negative) Urine Ketones Negative (Negative) Urine Blood Trace /uL (Negative) Urine Nitrite Negative (Negative) Urine Bilirubin Negative (Negative) Urine Urobilinogen Normal mg/dL (Negative) Urine Leukocyte Esterase Negative /uL (Negative) Urine RBC 11 /hpf (0 - 4) Urine Microscopic WBC < 1 /HPF (0-5) Urine Squamous Epithelial Cells None seen /hpf (<5) Urine Bacteria None seen /hpf (None Seen) Urine Hyaline Casts Few /lpf (0 - 2) Urine Mucus Few (None Seen) Urine Glucose Normal mg/dL (Normal) Prothrombin Time 11.1 sec (9.3-11.8) Prothrombin Time INR 1.05 (0.9-1.15) Activated Partial Thromboplast Time 27.9 SEC (24.5-34.5) Other Laboratory Tests 11/15/24 05:30 Brief Hx & Hospital Course: SEE DICTATED NOTE Condition at Discharge: Good Final Diagnosis/Problems List vaginal bleeding Discharge Disposition: Home Discharge Instruct/Medications Diet: Cardiac 2g Na,low cholest Activity: Light activity Follow Up/Referral: FU WITH DR BECK Medications: SCRIPT TO PHARMACY Discharge Statement: "Patient was advised to return to the ER or call 911 if any headaches, dizziness, shortness of breath, chest pain, abdominal pain, bleeding, fevers, or worsening of medical condition. Patient was counseled about treatment plan, medications, possible side effects, patientverbalized understanding. All questions were answered to the best of my ability. This discharge took greater then 30 minutes in planning, reviewing documentation, counseling the patient, and discussing with other team members." ASSESSMENT ASSESSMENT Hospital Course SEE DICTATED NOTE Assessment vaginal bleeding Date of Service: Nov 15, 2024 Billing Provider: ASAD WOODSON MD Common Visit Codes: 55112-FZT/OBS DISCH DAY >30min ASAD WOODSON MD Nov 15, 2024 16:43
[2024-11-15] MEDS ORDERED: DOCU-94 PO (16:44)
--- NOTE | 2024-11-15 17:38 | DVHDS ---
DATE OF DISCHARGE: 11/15/2024 HISTORY OF PRESENT ILLNESS: The patient is a 49-year-old lady who was admitted after she had vaginal bleeding following a transvaginal sling operation. The patient has previous history of anxiety. HOSPITAL COURSE: The patient was seen by Dr. Hernandez from Urology and underwent repair of vaginal tear. The patient has since done well. Hemoglobin has been stable. A CT of abdomen and pelvis that was obtained showed no evidence of ureteral injury with no contrast leak. The patient has since been passing urine and has had no further vaginal bleeding. She has been cleared for discharge by Dr. Hernandez. The patient will be discharged home to resume her home medications as well as to be on Colace p.r.n. for constipation. FINAL DIAGNOSES: * Vaginal bleeding status post vaginal tear. * History of sling surgery. * Morbid obesity. * Hepatic steatosis. * Anxiety. Time spent in discharge plan and review of plan with the patient and family at bedside was 38 minutes. MD WILLIAM Gracia/FABIEN TID: [id number] RECEIPT: [id number]
== END 2024-11-15 18:50 | disposition home or self-care (01) | DRG 908 ==
LOC: ER 13:04 → OVERFLOW 19:41 → EAST 20:43
PROVIDERS: ADMIT Internal Medicine; ATTEND Internal Medicine
PROC: 0JQC0ZZ Repair Pelvic Region Subcutaneous Tissue and Fascia, Open Approach (ICD-10-PCS; 2024-11-14)
PROC: 0TJB8ZZ Inspection of Bladder, Via Natural or Artificial Opening Endoscopic (ICD-10-PCS; principal; 2024-11-14 16:35)
DX: N99.820 Postprocedural hemorrhage of a genitourinary system organ or structure following a genitourinary system procedure (principal); Z68.41 Body mass index [BMI] 40.0-44.9, adult; F41.9 Anxiety disorder, unspecified; K59.00 Constipation, unspecified; E66.01 Morbid (severe) obesity due to excess calories; K76.0 Fatty (change of) liver, not elsewhere classified; S31.41XA Laceration without foreign body of vagina and vulva, initial encounter; Z90.49 Acquired absence of other specified parts of digestive tract; Z79.899 Other long term (current) drug therapy; X58.XXXA Exposure to other specified factors, initial encounter; Y93.89 Activity, other specified; Y99.8 Other external cause status; Y84.8 Other medical procedures as the cause of abnormal reaction of the patient, or of later complication, without mention of misadventure at the time of the procedure; Y92.89 Other specified places as the place of occurrence of the external cause
CPT/HCPCS: 36415; 74018; 74177; 76775; 80048; 81001; 83036; 85025; 85610; 85730; 86850; 86900; 86901; 96374; G0378; J1885

== ENCOUNTER → 2024-11-14 | Day surgery (SDC) | payer OTHER ==
[2024-11-10 09:54] LABS: Basophils # (auto) 0 10 ^3/uL (0-0.2); Basophils % (auto) 0.8 % (0.0-2.0); Eosinophils # (auto) 0.1 10 ^3/uL (0-0.8); Eosinophils % (auto) 1.7 % (0.0-7.0); Hematocrit 45.5 % (36.0-46.0); Lymphocytes # (auto) 1.9 10 ^3/uL (0.4-5.4); Mean Corpuscular Hemoglobin 27.6 pg (28.0-32.0); Mean Corpuscular Volume 83.7 fL (80.0-100.0); Monocytes # (auto) 0.4 10 ^3/uL (0-1.3); Monocytes % (auto) 6.8 % (0.0-12.0); Neutrophils # (auto) 3.2 10 ^3/uL (1.6-8.6); Neutrophils % (auto) 56.7 % (37.0-80.0); Platelet Count (auto) 333 10^3/uL (140-450); Red Blood Cells 5.43 10^6/uL (4.0-5.20); Red Cell Distribution Width 16.2 % (11.8-14.3); White Blood Cell 5.7 10^3/uL (4.4-10.8)
[2024-11-10 10:01] LABS: Urine Bacteria FEW /hpf (None Seen); Urine Blood Negative /uL (Negative); Urine Clarity Clear (Clear); Urine Color Light-Yellow (Yellow); Urine Mucus FEW (None Seen); Urine Protein, UAD Negative (Negative); Urine Specific Gravity 1.024 (1.001-1.035); Urine Squamous Epithelial Cell FEW /hpf (<5); Urine Urobilinogen Normal (Negative); Urine WBC 3 /HPF (0-5)
[2024-11-10 10:27] LABS: Alkaline Phosphatase 89 U/L (46-116); Anion Gap 9 (5-15); BUN/Creatinine Ratio 12.3 (10.0-20.0); Blood Urea Nitrogen 10 mg/dL (9-23); Carbon Dioxide 28 mmol/L (20-31); Chloride 103 mmol/L (98-107); Glucose 98 mg/dL (74-106); Potassium 4.3 mmol/L (3.5-5.1); Sodium 140 mmol/L (136-145)
[2024-11-10 10:28] LABS: Total Protein 7.6 g/dL (5.7-8.2)
[2024-11-10 10:29] LABS: Alanine Aminotransferase 72 U/L (7-40); Albumin 4.9 g/dL (3.2-4.8); Aspartate Aminotransferase 49 U/L (13-40); Bilirubin, Total 0.3 mg/dL (0.2-1.0)
[2024-11-10 10:36] LABS: INR 1.01 (0.9-1.15); Partial Thromboplastin Time 27.7 SEC (24.5-34.5); Prothrombin Time 10.7 sec (9.3-11.8)
[~2024-11-14] VITALS: Ht 165.1 cm; Wt 108.9 kg
[~2024-11-14] MED LIST changes: +ACETAMINOPHEN IV 1000 MG/100ML (10MG/ML) IV ONE; +ARNI1LIQ XX; +BACITRACIN TOP OINT 1 UD PKG TOP ONE; +CELECOXIB 100 MG CAP PO ONE; +CONJ ESTROGENS 0.625MG/GM VAG CRM 30GM PV ONE; +DOCU-94 PO; +FLUMAZENIL 0.1 MG/ML INJ 10ML MDV IV PRN; +GABAPENTIN 300 MG CAP PO ONE; +HYDROmorphone HCL 2 MG/ML VL/or syr IV PRN; -HYDROmorphone HCL 2 MG/ML VL/or syr ONE; +KETAMINE 50mg/ML 10ml Vial 10 ML ONE; +KETAMINE 50mg/ML 1ml syringe ONE; +LIDOCAINE 1% INJ PF 5ML AMP ONE; +LIDOCAINE HCL 2% TOP JELLY 5ML TOP ONE; +LIDOCAINE W/ EPINEPHRINE 1% 20ML VIAL ONE; +Lidocaine/Epinephrine 1%-1:100,000 30ML VL ONE; +NALOXONE HCL 0.4 MG/ML VIAL IV PRN; +ONDANSETRON HCL 4 MG/2 ML VIAL IV PRN; +ROCURONIUM 10MG/ML 10ML VIAL IV ONE; +SODIUM CHLORIDE LOCK 10 ML ONE; +TERB250T92 PO; +ceFAZolin 1GM VL ONE; +ceFAZolin 1GM/50ML 50 ML IV ONE; +ePHEDrine SULFATE 50 MG/ML AMP IV PRN; +fentaNYL CITRATE 100 MCG/2 ML VL IV PRN; +fentaNYL CITRATE 5 ML ONE; +hydrALAZINE HCL 20 MG/ML VL IV PRN; +oxyCODONE HCL 5MG TAB PO PRN
[2024-11-14 08:34] VITALS: PULSE 76; RESP 14; TEMP 97.3; O2SAT 98
--- NOTE | 2024-11-14 08:41 | DVHNC2 ---
Procedure - OPERATIVE REPORT Pre-op. Diagnosis: Stress urinary incontinence (625.6) Post-op. Diagnosis: Same as pre-op diagnosis Operation: Sling operation for incontinence (24373) Cystoscopy (15140) Anesthesia: General Indications: Patient presents with ISIS requiring many pads use daily. INFORMED CONSENT: Indications, risks, complications, alternatives and benefits of Transvaginal Sling operation are discussed with patient. All questions were encouraged and answered. She consented to proceed. Patient is aware of specific risks/complications including but not limited to infection, wound dehiscence, mesh erosion, urinary retention and persistent urinary incontinence. She is aware of alternatives to this procedure, including conservative management, other forms of urethropexy and pubovaginal sling. Among the various treatment options that were discussed she elected to proceed with transvaginal repair. She was fully notified that given the circumstances of her vaginal tissues, I may be required to use mesh material. I would specifically use polypropylene mesh if necessary in order to help correct her situation. There is a lot of litigation surrounding this topic. FDA (as a protective federal agency) has not pulled these materials. There is certainly litigation, very few of which have legitimacy and of those; usually extenuating circumstances are involved (such as poor patient tissue characteristics) other than just the mesh products. The patient is aware that the use of mesh could result in recurrence, erosion, pelvic pain, but it is also potentially necessary for correction of her anatomical defects. Given the above issues, informed consent was obtained. Patient has symptomatic cystocele and stress urinary incontinence. She elected to proceed. Details of Procedure: The patient was brought to the operating room and placed upon the table. After induction of anesthesia she was placed in the lithotomy position. Her genitalia and perineal regions were shaved, prepped, and draped in sans surgical fashion. A Guzman catheter was inserted. A Sebastien retractor was placed. Blue hooks were used to open up the vaginal canal. We used 1% lidocaine with epinephrine in order to hydro-dissect the mucosal layer away from the above structures which include urethra and the bladder. Next, I located and made a midurethral vaginal incision of approximately 1.5-2.0 cm and bluntly dissected bilaterally up to the interior portion of the inferior pubic ramus. The notch along the internal edge of ischiopubic ramus where the adductor longus tendon and the inferior pubic ramus converged was palpated. Integrated self-fixating tips are placed using the [employer] needle delivery system at the posterior surface of the ischiopubic ramus to align the sling appropriately in the midurethral level. Sling mesh is secured tension free with 2-0 Vicryl sutures. Needle device is removed, vaginal incision is closed with 2- 0 Vicryl suture. Cystoscopy is now performed to ensure that no injury to the bladder was incurred. Vaginal packing is placed with antibiotic and Estrace cream. Guzman catheter remains in place. All instrument counts and sponge counts were correct at the end of the operation. Specimens: None Complications: None Findings: EBL: Minimal Notes: Visit Code: Procedure Codes: 82487 VAGINAL SLING. 39760 CYSTOSCOPY. DEE BECK MD Nov 14, 2024 08:41
--- NOTE | 2024-11-14 08:44 | DVHDS2 ---
New Physician D'charge PN Admitting Diagnosis Admitting Diagnosis ISIS Discharge Diagnosis same Operations or Procedures Sling operation Reason(s) For Hospitalization Surgery Treatment Plan Discharge Condition of Discharge Fair Disposition Home Discharge Instructions Diet: Regular Activity: Light activity Activity comment: No heavy lifting No sexual activity for 6 weeks Medications: given Follow Up Care Follow Up/Referral: voiding trial/vaginal packing removal on POD#1 Discharge Statement: "Patient was advised to return to the ER or call 911 if any headaches, dizziness, shortness of breath, chest pain, abdominal pain, bleeding, fevers, or worsening of medical condition. Patient was counseled about treatment plan, medications, possible side effects, patientverbalized understanding. All questions were answered to the best of my ability. This discharge took greater then 30 minutes in planning, reviewing documenta tion, counseling the patient, and discussing with other team members." DEE BECK MD Nov 14, 2024 08:44
[2024-11-14 09:15] VITALS: BP 119/71; PULSE 75; RESP 15; O2SAT 95
== END | disposition home or self-care (01) ==
LOC: SUR 06:10
PROVIDERS: ATTEND Urology
DX: N39.3 Stress incontinence (female) (male) (principal); E66.01 Morbid (severe) obesity due to excess calories; F41.9 Anxiety disorder, unspecified; Z68.39 Body mass index [BMI] 39.0-39.9, adult; Z98.890 Other specified postprocedural states; Z82.49 Family history of ischemic heart disease and other diseases of the circulatory system; Z83.3 Family history of diabetes mellitus; Z79.899 Other long term (current) drug therapy
CPT/HCPCS: 36415; 57288; 80053; 81001; 84702; 85025; 85610; 85730; 87086; A4315; C1771; J0690; J1100; J1885; J2003; J2250; J2405; J2704; J3010